=== PATIENT | male | born 1985 | race Caucasian/White ===

== ENCOUNTER 2021-01-06 20:20 | Observation (INO) ==
[2021-01-06 21:44] LABS: Urine Appearance Clear; Urine Bilirubin Negative (Negative); Urine Blood 1+ (Negative); Urine Color Yellow; Urine Glucose Negative (Negative); Urine Ketones 1+ (Negative); Urine Nitrite Negative (Negative); Urine Protein Negative (Negative); Urine Urobilinogen Negative (Negative)
[2021-01-06 22:14] LABS: Urine Bacteria Absent (Absent); Urine Red Blood Cell Trace(0-2/hpf) (Absent); Urine White Blood Cell Trace(0-5/hpf) (Absent)
[2021-01-06 23:15] LABS: ABS Lymphocytes 0.9 10^3/ul (1.0-4.8); ABS Monocytes 0.6 10^3/ul (0-0.8); Eosinophil % 0.4 %; Hematocrit 44 % (42-52); Lymphocyte % 8.6 %; Mean Corpuscular HGB Conc 35 g/dL (31-36); Mean Corpuscular Hemoglobin 30 pg (27-31); Mean Corpuscular Volume 88 fL (80-94); Mean Platelet Volume 9.1 fL (7.4-10.4); Platelet Count 161 10^3/uL (150-450); Red Blood Count 4.94 10^6 /uL (4.18-5.48); Red Cell Distribution Width 13 % (10-15); White Blood Count 10.5 10^3/uL (3.5-10.8)
[2021-01-06 23:31] LABS: Albumin 4.3 g/dL (3.2-5.2); Albumin/Globulin Ratio 1.7 (1-3); Calcium 8.8 mg/dL (8.6-10.3); EGFR African American 51.3 (>60); EGFR Non-African American 42.4 (>60); Globulin 2.6 g/dL (2-4); Potassium 3.9 mmol/L (3.5-5.0); Total Bilirubin 0.8 mg/dL (0.2-1.0); Total Protein 6.9 g/dL (6.4-8.9)
[2021-01-06 23:47] LABS: Urine Appearance Clear; Urine Bilirubin Negative (Negative); Urine Blood 3+ (Negative); Urine Color Yellow; Urine Glucose Negative (Negative); Urine Ketones 1+ (Negative); Urine Nitrite Negative (Negative); Urine Protein Negative (Negative); Urine Specific Gravity 1.008 (1.002-1.030); Urine Urobilinogen Negative (Negative)
[2021-01-06 23:58] LABS: Urine Bacteria Absent (Absent); Urine Red Blood Cell 3+(>10/hpf) (Absent); Urine White Blood Cell Trace(0-5/hpf) (Absent)
[2021-01-06] MEDS ORDERED: fentaNYL 100 mcg/2 ml 50 MCG/ML VIAL IV ONE (23:58)
[2021-01-07] MEDS ORDERED: Famotidine IV 10 MG/ML 2 ml VIAL (20 mg) IV SLOW PU ONE (01:41)
[2021-01-07 02:31] LABS: Calcium 8.5 mg/dL (8.6-10.3); EGFR African American 56.7 (>60); EGFR Non-African American 46.8 (>60); Potassium 4.1 mmol/L (3.5-5.0)
[2021-01-07] MEDS ORDERED: Lactated Ringers 1000 ml BAG 1,000 ML IV ONE ×2 (09:59→12:07)
[2021-01-07] MEDS ORDERED: Iodixanol (CONTRAST) 320 MG/ML 100 ML SDV IV ONE (10:10)
[2021-01-07] MEDS ORDERED: fentaNYL 100 mcg/2 ml 50 MCG/ML VIAL IV SLOW PU ONE (10:54)
[2021-01-07] MEDS ORDERED: Morphine 4 MG/ML VIAL (1 ml) IV ONE (12:18)
[2021-01-07] MEDS ORDERED: Ondansetron 4 mg VIAL 2 MG/ML 2 ml VIAL IV ONE (12:25)
[2021-01-07] MEDS ORDERED: Ondansetron 4 mg VIAL 2 MG/ML 2 ml VIAL ONE (12:25)
[2021-01-07] MEDS ORDERED: HYDROmorphone 0.5 MG/0.5 ML SYRINGE IV ONE (13:50)
[2021-01-07] MEDS ORDERED: Ondansetron 4 mg VIAL 2 MG/ML 2 ml VIAL IV PRN (13:56)
[2021-01-07] MEDS ORDERED: HYDROmorphone 0.5 MG/0.5 ML SYRINGE IV PRN (13:59)
[2021-01-07] MEDS ORDERED: NS 0.9% 1000 ml BAG 1,000 ML IV SCH (14:00)
[2021-01-07 14:35] LABS: Calcium 8.5 mg/dL (8.6-10.3); EGFR African American 63.2 (>60); EGFR Non-African American 52.3 (>60); Potassium 3.9 mmol/L (3.5-5.0)
[2021-01-07] MEDS: Lactated Ringers 1000 ml BAG 1,000 ML IV SCH (18:25)
[2021-01-08] MEDS: Lactated Ringers 1000 ml BAG 1,000 ML IV SCH (02:34)
[2021-01-08 07:38] LABS: ABS Eosinophils 0.2 10^3/ul (0-0.6); ABS Lymphocytes 1.4 10^3/ul (1.0-4.8); ABS Monocytes 0.5 10^3/ul (0-0.8); ABS Neutrophils 4.2 10^3/ul (1.5-7.7); Eosinophil % 3.4 %; Hematocrit 39 % (42-52); Hemoglobin 13.8 g/dL (14.0-18.0); Lymphocyte % 21.9 %; Mean Corpuscular HGB Conc 36 g/dL (31-36); Mean Corpuscular Hemoglobin 31 pg (27-31); Mean Corpuscular Volume 86 fL (80-94); Mean Platelet Volume 9.5 fL (7.4-10.4); Nucleated Red Blood Cells % 0.1; Platelet Count 153 10^3/uL (150-450); Red Blood Count 4.51 10^6 /uL (4.18-5.48); Red Cell Distribution Width 13 % (10-15); White Blood Count 6.4 10^3/uL (3.5-10.8)
[2021-01-08 07:44] LABS: Calcium 8.3 mg/dL (8.6-10.3); EGFR African American 72.6 (>60); Potassium 3.7 mmol/L (3.5-5.0)
[2021-01-08 08:27] VITALS: BP 107/68
== END 2021-01-08 10:50 | disposition home or self-care (01) ==
LOC: SSU 20:20 → ED 20:20 → SSU 01-07 16:28
PROVIDERS: ADMIT Hospitalist; ATTEND Hospitalist